=== PATIENT | female | born 1995 | race Two or more races ===

== ENCOUNTER → 2025-02-15 | Outpatient (CLI) | payer MEDICAID, SELFPAY ==
--- NOTE | 2025-02-15 14:25 | XR_ITS ---
Examination: Foot, right, 3 views Technique: AP, oblique, lateral views foot, 3 views Date and time of exam: February 15, 2025 1451 hours INDICATIONS: Injury to the foot one week ago with foot pain. FINDINGS: Significant osteopenia. No acute fracture. Status post ankle fusion No dislocation IMPRESSION: No acute fracture
== END | disposition home or self-care (01) ==
LOC: CDIM 13:54
PROVIDERS: PCP Nurse Practitioner Family; Referring Provider Nurse Practitioner Family; Visit Provider Nurse Practitioner Family
DX: S99.921A Unspecified injury of right foot, initial encounter (principal); X58.XXXA Exposure to other specified factors, initial encounter
CPT/HCPCS: 73630